=== PATIENT | male | born 1985 | race Caucasian/White ===

== ENCOUNTER 2019-04-03 13:08 | Emergency (ER) | payer OTHER, SELFPAY ==
[~2019-04-03] VITALS: Ht 177.8 cm; Wt 65.9 kg
[2019-04-03 13:11] VITALS: BP 136/76
[2019-04-03] MEDS ORDERED: WELLTAB38 PO (13:41)
[2019-04-03] MEDS ORDERED: AZIT-10 PO (13:41)
[2019-04-03] MEDS ORDERED: SUBO12MI SL (13:41)
[2019-04-03] MEDS ORDERED: ZYPR2.5T2 PO (13:55)
== END 2019-04-03 14:32 | disposition left against medical advice (07) ==
LOC: M ED 13:08
DX: R04.2 Hemoptysis (principal); F17.210 Nicotine dependence, cigarettes, uncomplicated; Z91.030 Bee allergy status; Z79.891 Long term (current) use of opiate analgesic

== ENCOUNTER → 2019-06-01 | Outpatient (CLI) | payer OTHER ==
[~2019-06-01] MED LIST: AZIT-10 PO; SUBO12MI SL; WELLTAB38 PO; ZYPR2.5T2 PO
[2019-06-01 11:44] LABS: HEMATOCRIT 39.5 % (42.0-52.0); HEMOGLOBIN 12.6 g/dl (13.5-17.5); MEAN CORPUSCULAR HEMOGLOBIN 29.4 pg (27.0-33.0); MEAN CORPUSCULAR HGB CONC 31.9 g/dl (32.0-36.5); MEAN CORPUSCULAR VOLUME 92.1 fl (80.0-96.0); PLATELET COUNT, AUTOMATED 368 10^3/uL (150-450); RED BLOOD COUNT 4.29 10^6/uL (4.30-6.10); WHITE BLOOD COUNT 8.3 10^3/uL (4.0-10.0)
[2019-06-01 12:28] LABS: ALBUMIN 3.6 GM/DL (3.2-5.2); ALT/SGPT 27 U/L (12-78); BILIRUBIN,TOTAL 0.4 MG/DL (0.2-1.0); BLOOD UREA NITROGEN 17 MG/DL (7-18); CARBON DIOXIDE LEVEL 27 MEQ/L (21-32); CHLORIDE LEVEL 104 MEQ/L (98-107); CREATININE FOR GFR 1.01 MG/DL (0.70-1.30); GLOMERULAR FILTRATION RATE > 60.0 (>60); GLUCOSE, FASTING 99 MG/DL (70-100); POTASSIUM SERUM 4.3 MEQ/L (3.5-5.1); SODIUM LEVEL 139 MEQ/L (136-145); TOTAL PROTEIN 7.5 GM/DL (6.4-8.2)
--- NOTE | 2019-06-01 13:35 | ECGEPIP ---
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 Electronically Signed on 06-01-2019 13:35:37 EST by Vamsi Forde
[2019-06-01 13:37] LABS: HEPATITIS B SURFACE ANTIGEN NEGATIVE (NEGATIVE)
[2019-06-01 13:39] LABS: CHLAMYDIA DNA AMPLIFICATION NEGATIVE (NEGATIVE); GC DNA AMPLIFICATION NEGATIVE (NEGATIVE)
[2019-06-01 14:06] LABS: HIV 1&2 SCREEN CENTAUR NEGATIVE (NEGATIVE)
[2019-06-01 14:14] LABS: HEPATITIS C VIRUS ABY INDEX > 11.0 INDEX (<0.8)
== END ==
LOC: M LAB 10:51
PROVIDERS: ATTEND Family Medicine
DX: F11.20 Opioid dependence, uncomplicated (principal)

== ENCOUNTER → 2019-06-08 | Outpatient (CLI) | payer OTHER ==
[2019-06-08 12:17] LABS: APPEARANCE, URINE CLEAR (CLEAR); BACTERIA, URINE AUTO NEGATIVE (NEGATIVE); BILIRUBIN, URINE AUTO NEGATIVE (NEGATIVE); BLOOD, URINE BLOOD NEGATIVE (NEGATIVE); COLOR, URINE YELLOW (YELLOW); GLUCOSE, URINE (UA) AUTO NEGATIVE (NEGATIVE); KETONE, URINE AUTO NEGATIVE (NEGATIVE); LEUKOCYTE ESTERASE, URINE AUTO NEGATIVE (NEGATIVE); NITRITE, URINE AUTO NEGATIVE (NEGATIVE); PROTEIN, URINE AUTO NEGATIVE (NEGATIVE); RBC, URINE AUTO 3 /HPF (0-3); SPECIFIC GRAVITY URINE AUTO 1.017 (1.002-1.035); SQUAMOUS EPITHELIAL CELL UR AU 0 /HPF (0-6); UROBILINOGEN, URINE AUTO 0.2 mg/dL (0.0-2.0); WBC, URINE AUTO 0 /HPF (0-3)
[2019-06-08 12:29] LABS: BASO % 0.2 % (0.0-1.0); EOS % 0.5 % (0.0-3.0); HEMATOCRIT 36.9 % (42.0-52.0); HEMOGLOBIN 11.8 g/dl (13.5-17.5); LYMPH # 1.3 10^3/uL (1.5-5.0); LYMPH % 15.2 % (24.0-44.0); MEAN CORPUSCULAR HEMOGLOBIN 28.9 pg (27.0-33.0); MEAN CORPUSCULAR VOLUME 90.2 fl (80.0-96.0); MONO # 0.8 10^3/uL (0.0-0.8); MONO % 9.2 % (0.0-5.0); NEUTROPHILS # 6.4 10^3/uL (1.5-8.5); NEUTROPHILS % 74.6 % (36.0-66.0); PLATELET COUNT, AUTOMATED 258 10^3/uL (150-450); RED BLOOD COUNT 4.09 10^6/uL (4.30-6.10); WHITE BLOOD COUNT 8.6 10^3/uL (4.0-10.0)
[2019-06-08 12:55] LABS: ALBUMIN 3.4 GM/DL (3.2-5.2); ALT/SGPT 21 U/L (12-78); BILIRUBIN,TOTAL 0.6 MG/DL (0.2-1.0); BLOOD UREA NITROGEN 11 MG/DL (7-18); CALCIUM LEVEL 8.6 MG/DL (8.5-10.1); CARBON DIOXIDE LEVEL 29 MEQ/L (21-32); CHLORIDE LEVEL 101 MEQ/L (98-107); CREATININE FOR GFR 0.85 MG/DL (0.70-1.30); GLOMERULAR FILTRATION RATE > 60.0 (>60); GLUCOSE, FASTING 81 MG/DL (70-100); POTASSIUM SERUM 4.7 MEQ/L (3.5-5.1); SODIUM LEVEL 136 MEQ/L (136-145); TOTAL PROTEIN 7.5 GM/DL (6.4-8.2)
[2019-06-08 13:17] LABS: HEPATITIS B SURFACE ANTIGEN NEGATIVE (NEGATIVE)
[2019-06-08 13:46] LABS: HEPATITIS B CORE ANTIBODY IGM NEGATIVE (NEGATIVE)
[2019-06-08 13:47] LABS: HEPATITIS A ANTIBODY IGM NEGATIVE (NEGATIVE)
[2019-06-08 14:21] LABS: HEPATITIS C VIRUS ABY INDEX > 11.0 INDEX (<0.8)
== END ==
LOC: M LAB 10:35
PROVIDERS: ATTEND Physician Assistant Medical
DX: Z02.2 Encounter for examination for admission to residential institution (principal)

== ENCOUNTER 2019-12-08 10:30 | Emergency (ER) | payer OTHER ==
[~2019-12-08] VITALS: Ht 177.8 cm; Wt 89.9 kg
[2019-12-08] MEDS ORDERED: TOPI50TA9 (10:39)
[2019-12-08] MEDS ORDERED: GABA-843 (10:39)
[2019-12-08] MEDS ORDERED: METHADONE (10:39)
[2019-12-08] MEDS ORDERED: BUPR300T92 (10:39)
[2019-12-08] MEDS ORDERED: QUET5TAB (10:39)
[2019-12-08] MEDS ORDERED: AMPH1TAB2 (10:39)
[2019-12-08] MEDS ORDERED: PRAZ1CAP (10:39)
[2019-12-08] MEDS ORDERED: BUPR150T3 (10:39)
[2019-12-08] MEDS ORDERED: methylPREDNISolone INJ 125 MG/2 ML VIAL (J2930) IV ONE (11:30)
[2019-12-08] MEDS ORDERED: predniSONE 20 MG TAB PO ONE (12:15)
[2019-12-08] MEDS ORDERED: PRED20TA PO (13:16)
[2019-12-08] MEDS ORDERED: EPIP0.3I2 IM (13:18)
[2019-12-08 13:38] VITALS: BP 123/75
== END 2019-12-08 13:38 | disposition home or self-care (01) ==
LOC: M ED 10:30
DX: S40.862A Insect bite (nonvenomous) of left upper arm, initial encounter (principal); T63.441A Toxic effect of venom of bees, accidental (unintentional), initial encounter; Z91.030 Bee allergy status; Y93.9 Activity, unspecified; Y92.9 Unspecified place or not applicable; Y99.9 Unspecified external cause status; F41.9 Anxiety disorder, unspecified; F32.9 Major depressive disorder, single episode, unspecified; F17.200 Nicotine dependence, unspecified, uncomplicated; Z79.899 Other long term (current) drug therapy

== ENCOUNTER 2021-01-12 21:24 | Emergency (ER) | payer OTHER ==
[~2021-01-12] VITALS: Ht 177.8 cm; Wt 83.0 kg
[2021-01-12 21:24] VITALS: BP 175/93
[~2021-01-12 21:24] MED LIST changes: +AMPH1TAB2; +BUPR150T12; +BUPR300T92 PO; +EPIP0.3I2 IM; +GABA-282; +METHADONE PO; +PRAZ1CAP PO; +PRED20TA PO; +QUET50TA3; +TOPI50TA9 PO
== END 2021-01-12 22:16 | disposition left against medical advice (07) ==
LOC: M ED 21:24
DX: Z53.21 Procedure and treatment not carried out due to patient leaving prior to being seen by health care provider (principal)

== ENCOUNTER 2021-06-10 10:13 | Emergency (ER) | payer OTHER ==
[~2021-06-10] VITALS: Ht 177.8 cm; Wt 77.5 kg
[~2021-06-10 10:13] MED LIST changes: -QUET50TA3; +QUET50TA4 PO
[2021-06-10] MEDS ORDERED: AMPH1CAP5 (10:28)
[2021-06-10] MEDS ORDERED: DOXA1TAB49 (10:28)
[2021-06-10] MEDS ORDERED: OXCA150T21 (10:28)
[2021-06-10] MEDS ORDERED: ACAM0.05 PO (10:28)
[2021-06-10] MEDS ORDERED: ADDE1TAB14 PO (10:28)
[2021-06-10] MEDS ORDERED: NYST50SS SS (12:24)
[2021-06-10 12:31] VITALS: BP 129/85
[2021-08-08] MEDS ORDERED: OXCA600T8 PO (11:37)
== END 2021-06-10 12:32 | disposition home or self-care (01) ==
LOC: M ED 10:13
DX: B37.0 Candidal stomatitis (principal); B37.81 Candidal esophagitis; J02.9 Acute pharyngitis, unspecified; R06.02 Shortness of breath; R19.7 Diarrhea, unspecified; G43.909 Migraine, unspecified, not intractable, without status migrainosus; M54.50 Low back pain, unspecified; F41.9 Anxiety disorder, unspecified; F43.10 Post-traumatic stress disorder, unspecified; F31.9 Bipolar disorder, unspecified; F17.220 Nicotine dependence, chewing tobacco, uncomplicated; Z79.899 Other long term (current) drug therapy

== ENCOUNTER 2021-06-26 08:10 | Emergency (ER) | payer OTHER ==
[~2021-06-26] VITALS: Ht 177.8 cm; Wt 79.3 kg
[~2021-06-26 08:10] MED LIST changes: +ACAM0.05; +ADDE1TAB14 PO; +AMPH1CAP5; +DOXA1TAB49; +NYST50SS SS; +OXCA150T21
[2021-06-26] MEDS ORDERED: MAGIC MOUTHWASH *ED ONLY* 5ML ORAL SYRINGE SS ONE (11:05)
[2021-06-26] MEDS ORDERED: IBUP-1022 PO (11:27)
[2021-06-26] MEDS ORDERED: MAGICMW SSP (11:27)
[2021-06-26 12:17] LABS: BASO % 0.5 % (0.0-1.0); EOS % 0.6 % (0.0-3.0); HEMATOCRIT 40.5 % (42.0-52.0); HEMOGLOBIN 13.1 g/dl (13.5-17.5); LYMPH # 1.9 10^3/uL (1.5-5.0); LYMPH % 28.5 % (24.0-44.0); MEAN CORPUSCULAR HEMOGLOBIN 28.3 pg (27.0-33.0); MEAN CORPUSCULAR HGB CONC 32.3 g/dl (32.0-36.5); MEAN CORPUSCULAR VOLUME 87.5 fl (80.0-96.0); MONO # 0.6 10^3/uL (0.0-0.8); MONO % 8.3 % (2.0-8.0); NEUTROPHILS # 4.1 10^3/uL (1.5-8.5); NEUTROPHILS % 61.5 % (36.0-66.0); PLATELET COUNT, AUTOMATED 511 10^3/uL (150-450); RED BLOOD COUNT 4.63 10^6/uL (4.30-6.10); WHITE BLOOD COUNT 6.6 10^3/uL (4.0-10.0)
[2021-06-26 13:56] VITALS: BP 136/84
== END 2021-06-26 14:14 | disposition home or self-care (01) ==
LOC: M ED 08:10
DX: J02.9 Acute pharyngitis, unspecified (principal); K13.70 Unspecified lesions of oral mucosa; F43.10 Post-traumatic stress disorder, unspecified; F90.9 Attention-deficit hyperactivity disorder, unspecified type; F32.9 Major depressive disorder, single episode, unspecified; B18.2 Chronic viral hepatitis C

== ENCOUNTER → 2021-08-11 | Outpatient (CLI) | payer OTHER ==
[~2021-08-11] MED LIST changes: -ACAM0.05; +ACAM0.05 PO; +IBUP-1022 PO; +MAGICMW SSP; +OXCA600T8 PO
== END ==
LOC: M LABSMTC 09:29
PROVIDERS: ATTEND Anesthesiology
DX: Z01.818 Encounter for other preprocedural examination (principal); Z11.52 Encounter for screening for COVID-19

== ENCOUNTER → 2021-08-16 | Day surgery (SDC) | payer OTHER ==
[~2021-08-16] VITALS: Ht 177.8 cm; Wt 78.5 kg
[~2021-08-16] MED LIST changes: +ACETAMINOPHEN 1000MG 100ML IV BTL (OFIRMEV) (J0131 PER 10MG) As Ordered ONE; +BUPIVACAINE HCL 0.5% 10ML VIAL As Ordered ONE; +LIDOCAINE 1% MDV 20ML VIAL As Ordered ONE; +LIDOCAINE 1% MDV 20ML VIAL SQ PRN; +LIDOCAINE 2% 100MG/5ML SDV (FOR ANES.) As Ordered ONE; +LIDOCAINE W/EPINEPHRINE 1% 20ML VIAL As Ordered ONE; +LR 1,000 ML IV ONE; +MIDAZOLAM INJ 2MG/2ML VIAL (J2250 PER 1MG) As Ordered ONE; +ONDANSETRON 4MG/2ML VIAL As Ordered ONE; +ROCURONIUM BROMIDE 50 MG/5 ML VIAL As Ordered ONE; +dexameTHASONE 4 MG/ML 1ML VIAL (J1100 PER 1MG) As Ordered ONE; +fentaNYL 100 MCG/2 ML INJECTION As Ordered ONE; +propofoL 200 MG/20 ML VIAL As Ordered ONE
[2021-08-16 09:57] VITALS: BP 124/82
== END | disposition home or self-care (01) ==
LOC: M SDC 09:39
PROVIDERS: ATTEND Otolaryngology
DX: K13.21 Leukoplakia of oral mucosa, including tongue (principal); Z53.29 Procedure and treatment not carried out because of patient's decision for other reasons
CPT/HCPCS: J2250; J3010

== ENCOUNTER 2022-01-06 02:03 | Emergency (ER) | payer OTHER ==
[~2022-01-06] VITALS: Ht 177.8 cm; Wt 79.5 kg
[~2022-01-06 02:03] MED LIST changes: -ACETAMINOPHEN 1000MG 100ML IV BTL (OFIRMEV) (J0131 PER 10MG) As Ordered ONE; -BUPIVACAINE HCL 0.5% 10ML VIAL As Ordered ONE; -LIDOCAINE 1% MDV 20ML VIAL As Ordered ONE; -LIDOCAINE 1% MDV 20ML VIAL SQ PRN; -LIDOCAINE 2% 100MG/5ML SDV (FOR ANES.) As Ordered ONE; -LIDOCAINE W/EPINEPHRINE 1% 20ML VIAL As Ordered ONE; -LR 1,000 ML IV ONE; -MIDAZOLAM INJ 2MG/2ML VIAL (J2250 PER 1MG) As Ordered ONE; -ONDANSETRON 4MG/2ML VIAL As Ordered ONE; -ROCURONIUM BROMIDE 50 MG/5 ML VIAL As Ordered ONE; -dexameTHASONE 4 MG/ML 1ML VIAL (J1100 PER 1MG) As Ordered ONE; -fentaNYL 100 MCG/2 ML INJECTION As Ordered ONE; -propofoL 200 MG/20 ML VIAL As Ordered ONE
[2022-01-06 02:04] VITALS: BP 136/82
[2022-01-06 02:48] LABS: BASO % 0.7 % (0.0-1.0); EOS # 0.1 10^3/uL (0.0-0.5); EOS % 1.8 % (0.0-3.0); HEMATOCRIT 36.3 % (42.0-52.0); HEMOGLOBIN 12.6 g/dl (13.5-17.5); LYMPH # 2.8 10^3/uL (1.5-5.0); LYMPH % 50.9 % (24.0-44.0); MEAN CORPUSCULAR HEMOGLOBIN 29.8 pg (27.0-33.0); MEAN CORPUSCULAR HGB CONC 34.7 g/dl (32.0-36.5); MEAN CORPUSCULAR VOLUME 85.8 fl (80.0-96.0); MONO # 0.5 10^3/uL (0.0-0.8); MONO % 9.6 % (2.0-8.0); NEUTROPHILS % 36.8 % (36.0-66.0); PLATELET COUNT, AUTOMATED 264 10^3/uL (150-450); RED BLOOD COUNT 4.23 10^6/uL (4.30-6.10); WHITE BLOOD COUNT 5.5 10^3/uL (4.0-10.0)
[2022-01-06 03:10] LABS: BLOOD UREA NITROGEN 14 MG/DL (7-18); CALCIUM LEVEL 8.9 MG/DL (8.5-10.1); CARBON DIOXIDE LEVEL 29 MEQ/L (21-32); CHLORIDE LEVEL 105 MEQ/L (98-107); CREATININE FOR GFR 0.94 MG/DL (0.70-1.30); GLOMERULAR FILTRATION RATE > 60.0 (>60); GLUCOSE, FASTING 86 MG/DL (70-100); POTASSIUM SERUM 3.6 MEQ/L (3.5-5.1); SODIUM LEVEL 140 MEQ/L (136-145)
== END 2022-01-06 03:49 | disposition left against medical advice (07) ==
LOC: M ED 02:03
DX: Z53.21 Procedure and treatment not carried out due to patient leaving prior to being seen by health care provider (principal)

== ENCOUNTER 2022-01-20 17:06 | Emergency (ER) | payer OTHER ==
[~2022-01-20] VITALS: Ht 177.8 cm; Wt 77.7 kg
[2022-01-20] MEDS ORDERED: [UNRECOGNIZED DRUG - OTHER] (17:22)
[2022-01-20] MEDS ORDERED: AMPHETAMINE (17:22)
[2022-01-20] MEDS ORDERED: METH10CO PO (17:25)
[2022-01-20] MEDS ORDERED: KETOROLAC 60MG 2ML VIAL IM ONE (18:20)
[2022-01-20] MEDS ORDERED: LIDOCAINE 5% (LIDODERM) PATCH TD ONE (18:20)
[2022-01-20] MEDS ORDERED: predniSONE 20 MG TAB PO ONE (18:20)
[2022-01-20] MEDS ORDERED: methocarbamoL 750 MG TAB PO ONE (18:20)
[2022-01-20] MEDS ORDERED: METH-1165 PO (18:32)
[2022-01-20] MEDS ORDERED: ASPE4PAD TOP (18:32)
[2022-01-20] MEDS ORDERED: NAPR-837 PO (18:32)
[2022-01-20] MEDS ORDERED: MEDR4PAK PO (18:34)
[2022-01-20 19:00] VITALS: BP 135/83
[2022-01-20] MEDS ORDERED: **NOTE PATIENT COMMENT** MISC XX SCH (21:00)
== END 2022-01-20 19:01 | disposition home or self-care (01) ==
LOC: M ED 17:06
DX: M54.50 Low back pain, unspecified (principal); B18.9 Chronic viral hepatitis, unspecified; F17.200 Nicotine dependence, unspecified, uncomplicated; F15.10 Other stimulant abuse, uncomplicated; Z91.030 Bee allergy status; Z79.899 Other long term (current) drug therapy
CPT/HCPCS: 96372; 99283; J1885; J7512

== ENCOUNTER → 2022-05-04 | Outpatient (CLI) | payer OTHER ==
[~2022-05-04] MED LIST changes: +AMPHETAMINE; +ASPE4PAD TOP; +MEDR4PAK PO; +METH-1165 PO; +METH10CO PO; +NAPR-837 PO; +[UNRECOGNIZED DRUG - OTHER]
== END ==
LOC: M PLAIMG 10:32
PROVIDERS: ATTEND Family Medicine Addiction Medicine
DX: R05.3 Chronic cough (principal)

== ENCOUNTER → 2022-06-04 | Outpatient (CLI) | payer OTHER | LOC: M OUTALCOH 10:13 | PROVIDERS: ATTEND Psychiatry & Neurology Psychiatry | DX: F10.10 Alcohol abuse, uncomplicated (principal) ==

== ENCOUNTER → 2022-06-13 | Outpatient (CLI) | payer OTHER ==
[~2022-06-13] MED LIST changes: +E-Z-GAS II EFFERVESCENT PACKET (SODIUM BICARB./CITRIC ACID/SIMETHICONE) As Ordered ONE; +E-Z-HD 98% w/w 340GM SUSP BTL As Ordered ONE; +E-Z-PAQUE 96% w/w SUSP 176GM BTL As Ordered ONE
== END ==
LOC: M RAD 07:08
PROVIDERS: ATTEND Otolaryngology
DX: K21.9 Gastro-esophageal reflux disease without esophagitis (principal)